=== PATIENT | female | born 1970 | race Caucasian/White ===

== ENCOUNTER → 2017-08-13 | Outpatient (CLI) | payer OTHER ==
[~2017-08-13] MED LIST: CRESTOR10 MG PO; LEVOTHYROXINE50 MCG PO; TAMOXIFEN CITRA10 MG PO; VITAMIN D400 UNIT PO
--- NOTE | 2017-08-14 08:31 | Diagnostic Imaging Report ---
#[id number] - [id number] #BILATERAL DIGITAL DIAGNOSTIC MAMMOGRAM WITH CAD: 08/13/2017 Comparison is made to exams dated: 01/12/2016 mammogram, 12/02/2012 mammogram, 11/25/2012 mammogram and 10/31/2012 mammogram - [facility]. Current study contains 7 films. The tissue of both breasts is heterogeneously dense. This may lower the sensitivity of mammography. Current study was also evaluated with a Computer Aided Detection (CAD) system. There are benign calcifications in the right breast. There also are post operative findings in the right breast with a scar marker present and multiple surgical clips. Stabe appearing distortion secondary to lumpectomy on the right side. No significant masses, calcifications, or other findings are seen in either breast. There has been no significant interval change. IMPRESSION: BENIGN There is no mammographic evidence of malignancy. A 1 year screening mammogram is recommended. The patient will be notified by letter of the results. Noah Evans Jr., D.O. cw/:08/13/2017 11:50:01 Post Acute Care Nurse: Ella SINGH(Devonte)(M), [facility] letter sent: Compared to Prior B9 Mammogram BI-RADS: 2 Benign
== END ==
LOC: MAMMO 09:39
PROVIDERS: ATTEND Family Medicine
DX: Z85.3 Personal history of malignant neoplasm of breast (principal)
CPT/HCPCS: 77066

== ENCOUNTER → 2018-08-14 | Outpatient (CLI) | payer OTHER | LOC: MAMMO 10:12 | PROVIDERS: ATTEND Internal Medicine Hematology & Oncology | DX: Z12.31 Encounter for screening mammogram for malignant neoplasm of breast (principal); Z85.3 Personal history of malignant neoplasm of breast | CPT/HCPCS: 77067 ==

== ENCOUNTER → 2020-03-30 | Outpatient (CLI) | payer OTHER | LOC: MAMMO 08:08 | PROVIDERS: ATTEND Internal Medicine Hematology & Oncology | DX: Z12.31 Encounter for screening mammogram for malignant neoplasm of breast (principal) | CPT/HCPCS: 77067 ==